=== PATIENT | female | born 1970 | race American Indian/Alaskan Native ===

== ENCOUNTER 2021-11-08 02:44 | Emergency (ER) | payer SELFPAY ==
[2021-11-08 02:48] VITALS: BP 131/64
== END 2021-11-08 11:12 | disposition left against medical advice (07) ==
LOC: ED 02:44
DX: R73.9 Hyperglycemia, unspecified (principal); Z53.21 Procedure and treatment not carried out due to patient leaving prior to being seen by health care provider